=== PATIENT | male | born 1980 | race Caucasian/White ===

== ENCOUNTER 2019-04-14 15:11 | Emergency (ER) | payer OTHER ==
[~2019-04-14] VITALS: Ht 177.8 cm; Wt 131.5 kg
[2019-04-14 15:32] VITALS: BP 145/98
--- NOTE | 2019-04-14 16:43 | NUR ---
PT AMBULATED TO ER [facility]
[2019-04-14] MEDS ORDERED: ACETAMINOPHEN EXTRA STRENGTH 500 MG TAB PO ONE (17:00)
--- NOTE | 2019-04-14 17:05 | NUR ---
PT TO ED WITH L WRIST PAIN AND SWELLING X 1 WEEK. PT REPORTS HAVING A SLIP AND FALL IN THE SHOWER WITHOUT LOC. OBVIOUS SWELLING NOTED TO LEFT WRIST. CAP REFILL LESS THAN 3 SECONS. PULSES PRESENT AND REGULAR. LIMITED ROM DUE TO PAIN. IN CHAIR FOR MD LUKE.
[2019-04-14 17:18] VITALS: BP 145/98
== END 2019-04-14 17:18 | disposition home or self-care (01) ==
LOC: MED 15:11
DX: S52.502A Unspecified fracture of the lower end of left radius, initial encounter for closed fracture (principal); S52.612A Displaced fracture of left ulna styloid process, initial encounter for closed fracture; S62.102A Fracture of unspecified carpal bone, left wrist, initial encounter for closed fracture; W18.2XXA Fall in (into) shower or empty bathtub, initial encounter; Y92.002 Bathroom of unspecified non-institutional (private) residence as the place of occurrence of the external cause; Y93.89 Activity, other specified; Y99.8 Other external cause status
CPT/HCPCS: 73110; 99283

== ENCOUNTER 2019-07-28 20:44 | Emergency (ER) | payer OTHER ==
[~2019-07-28] VITALS: Ht 165.1 cm; Wt 133.4 kg
[2019-07-28 21:03] VITALS: BP 150/89
--- NOTE | 2019-07-28 21:21 | NUR ---
XRAY AT BEDSIDE
--- NOTE | 2019-07-28 21:44 | NUR ---
Dr. Valentine examining patient.
[2019-07-28] MEDS ORDERED: NACL 0.9% IRR 250 ML BOTTLE IR STA (21:49)
[2019-07-28] MEDS ORDERED: NEOMYCIN/POLYMYXIN/BACITRACIN 0.9 GM/1 PKT TP ONE (21:50)
--- NOTE | 2019-07-28 22:01 | NUR ---
FINGER INJURY TO RIGHT HAND. PT WAS PEELING POTATOS TODAY AND SLICED THE TIP OF HIS MIDDLE FINGER ON RIGHT HAND. CMS+. CAP REFILL <3 BILAT UPPER EXT. PAIN IS CURRENTLY 2/10 SHARP PAIN. PATIENT HAS FULL ROM BILAT UPPER EXTREMITIES. BLEEDING IS CONTROLLED AT THIS TIME. DEANNA
--- NOTE | 2019-07-28 22:01 | NUR ---
Patient discharged with v/s stable. Written and verbal after care instructions given and explained. Patient verbalized understanding. Ambulatory with steady gait. All questions addressed prior to discharge. Advised to follow up with PMD.
== END 2019-07-28 22:01 | disposition home or self-care (01) ==
LOC: MED 20:44
DX: S61.202A Unspecified open wound of right middle finger without damage to nail, initial encounter (principal); I10 Essential (primary) hypertension; W45.8XXA Other foreign body or object entering through skin, initial encounter; Y93.89 Activity, other specified; Y92.89 Other specified places as the place of occurrence of the external cause; Y99.8 Other external cause status
CPT/HCPCS: 73140; 99283; Q0092